=== PATIENT | male | born 1935 | race Two or more races ===

== ENCOUNTER 2021-06-19 16:26 | Inpatient (IN) | payer MEDICARE, MEDICAID ==
[~2021-06-19] VITALS: Ht 182.9 cm; Wt 97.0 kg
[2021-06-21 08:07] VITALS: BP 117/80
== END 2021-06-21 12:35 | disposition home or self-care (01) | DRG 177 ==
LOC: ED 17:00 → 3N 22:08
PROVIDERS: ADMIT Internal Medicine; ATTEND Hospitalist
DX: U07.1 COVID-19 (principal); J12.82 Pneumonia due to coronavirus disease 2019; H40.9 Unspecified glaucoma